=== PATIENT | female | born 1950 ===

== ENCOUNTER 2018-06-30 22:14 | Inpatient (IN) | payer MEDICARE, OTHER ==
[2018-06-30 22:59] LABS: BASO # 0.1 K/uL (0.0-0.2); BASO % 0.3 % (0.0-2.0); EOS % 0.1 % (0.0-4.0); HEMOGLOBIN 14.5 g/dL (11.0-16.0); LYMPH # 4.6 K/uL (1.0-4.3); MEAN CORPUSCULAR HEMOGLOBIN 29.7 pg (27.0-31.0); MEAN CORPUSCULAR HGB CONC 33.7 g/dL (33.0-37.0); MEAN PLATELET VOLUME 8.7 fL (7.2-11.7); MONO # 0.9 K/uL (0.0-0.8); MONO % 5.1 % (0.0-10.0); NEUT # 12.8 K/uL (1.8-7.0); NEUT % 69.5 % (50.0-75.0); RBC 4.9 Mil/uL (3.80-5.20); WHITE BLOOD COUNT 18.4 K/uL (4.8-10.8)
[2018-06-30 23:11] LABS: ALB/GLOB RATIO 1.4 (1.0-2.1); ALBUMIN 4.3 g/dL (3.5-5.0); ALT/SGPT 31 U/L (9-52); AST/SGOT 22 U/L (14-36); BLOOD UREA NITROGEN 26 mg/dL (7-17); CALCIUM 9.7 mg/dl (8.6-10.4); GFR NON-AFRICAN AMERICAN > 60
[2018-06-30] MEDS ORDERED: Oxycodone/Acetaminophen 5/325 mg Tab PO STA (23:14)
[2018-06-30 23:27] LABS: INR 1.1; PROTHROMBIN TIME 11.5 SECONDS (9.7-12.2)
[2018-06-30] MEDS ORDERED: Iodixanol 320 MG/ML 100 ML BOTTLE IV ONE (23:38)
[2018-06-30] MEDS ORDERED: Oxycodone/Acetaminophen 5/325 mg Tab ONE (23:59)
--- NOTE | 2018-07-01 01:07 | C.PDOC ---
History Of Present Illness 67 year old female, with PSHx of splenectomy and cholecystectomy, presents to ED with complaints of LUQ epigastric pain, associated with nausea and vomiting. Patient takes eliquis for portal vein thrombosis annually. Denies any diarrhea or constipation. Time Seen by Provider: 06/30/18 23:08 Chief Complaint (Nursing): Abdominal Pain History Per: Patient History/Exam Limitations: no limitations Onset/Duration Of Symptoms: Days Current Symptoms Are (Timing): Still Present Past Medical History Reviewed: Historical Data, Nursing Documentation, Vital Signs Vital Signs: Last Vital Signs Temp 98 F 06/30/18 22:29 Pulse 67 06/30/18 22:29 Resp 22 06/30/18 22:29 BP 146/101 H 06/30/18 22:29 Pulse Ox 99 06/30/18 22:29 - Medical History PMH: HTN Family History: States: No Known Family Hx - Social History Hx Alcohol Use: Yes Hx Substance Use: No Review Of Systems Except As Marked, All Systems Reviewed And Found Negative. Cardiovascular: Negative for: Chest Pain Respiratory: Negative for: Shortness of Breath Gastrointestinal: Positive for: Nausea, Vomiting, Abdominal Pain (LUQ epigastric). Negative for: Diarrhea Neurological: Negative for: Weakness, Numbness Physical Exam - Physical Exam Appears: Non-toxic, Other (Moderate distress) Skin: Warm, Dry Head: Atraumatic, Normacephalic Eye(s): bilateral: Normal Inspection Oral Mucosa: Moist Chest: Symmetrical Cardiovascular: Rhythm Regular, No Murmur Respiratory: Normal Breath Sounds, No Rales, No Rhonchi, No Wheezing Gastrointestinal/Abdominal: Bowel Sounds (Diminished), Tenderness (in epigastrium) Neurological/Psych: Oriented x3, Normal Speech ED Course And Treatment - Laboratory Results Result Diagrams: 06/30/18 22:57 06/30/18 22:57 Lab Interpretation: Abnormal (LFT, trop neg.) ECG: Interpreted By Me ECG Rhythm: Sinus Rhythm ECG Interpretation: Normal Rate From EC O2 Sat by Pulse Oximetry: 99 (RA) Pulse Ox Interpretation: Normal - Radiology CXR: Interpreted by Me CXR Interpretation: Yes: No Acute Disease - Other Rad abd x 2 X-Ray: Interpreted by Me (+FOS) - CT Scan/US CT Abd/Pel Other Rad Studies (CT/US): Read By Radiologist, Radiology Report Reviewed CT/US Interpretation: IMPRESSION: Changes from prior thrombosis of the left branch of the portal vein. It appears that small in caliber but recanalize with normal flow the current exam. 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 Uncomplicated colonic diverticulosis. Absent/atrophic spleen. Prior hysterectomy. No evidence of acute abdominal or pelvic pathology. Reevaluation Time: 01:09 Reassessment Condition: Improved (belly benign) - Physician Consult Information Outcome Of Conversation: 0100: d/w Dr. Cantrell- Medicine Stations Superintendent- ok to admit. Medical Decision Making Medical Decision Making: Impression: Abdominal pain Plan: --CT Abd/Pel --EKG --Labs --Obstructive X-Ray --IV Fluids --Pepcid --Zofran --Toradol --Percocet --Urinalysis h/o splenectomy and portla vein thrombosis on eliquis BID PO normal flow today Acute colicky pain +FOS recommend overnight laxative Leukocytosis no acute infection prob related to vomiting recheck for trend in AM Disposition Doctor Will See Patient In The: Hospital Counseled Patient/Family Regarding: Studies Performed, Diagnosis - Disposition Disposition: HOSPITALIZED Disposition Time: 01:11 Condition: GOOD - Clinical Impression Clinical Impression: Acute abdominal pain - Scribe Statement The provider has reviewed the documentation as recorded by the Jaun Weiss Provider Attestation: All medical record entries made by the Juan were at my direction and personally dictated by me. I have reviewed the chart and agree that the record accurately reflects my personal performance of the history, physical exam, medical decision making, and the department course for this patient. I have also personally directed, reviewed, and agree with the discharge instructions and disposition.
[2018-07-01 01:21] LABS: SQUAMOUS EPITHIAL < 1 /hpf (0-5); URINE BILIRUBIN NEGATIVE (NEGATIVE); URINE BLOOD NEGATIVE (NEGATIVE); URINE CLARITY Clear (Clear); URINE COLOR Yellow (YELLOW); URINE GLUCOSE (UA) NORMAL (Normal); URINE LEUKOCYTE ESTERASE 1+ Leu/uL (Negative); URINE PROTEIN NEGATIVE (NEGATIVE); URINE UROBILINOGEN NORMAL mg/dL (0.2-1.0)
[2018-07-01] MEDS: Dextrose 5%/0.45% NS 1,000 ML IV SCH ×2 (02:01→17:36)
[2018-07-01] MEDS ORDERED: Albuterol HFA 90 mcg/actuation (8 g) IH PRN ×3 (02:20→13:45)
[2018-07-01 08:54] LABS: BASO % 0.3 % (0.0-2.0); EOS # 0.1 K/uL (0.0-0.7); HEMOGLOBIN 13.2 g/dL (11.0-16.0); LYMPH % 21.1 % (20.0-40.0); MEAN CELL VOLUME 88.9 fL (81.0-99.0); MEAN CORPUSCULAR HEMOGLOBIN 29.9 pg (27.0-31.0); MEAN CORPUSCULAR HGB CONC 33.6 g/dL (33.0-37.0); MONO # 1.2 K/uL (0.0-0.8); MONO % 8.6 % (0.0-10.0); NEUT # 9.7 K/uL (1.8-7.0); RBC 4.42 Mil/uL (3.80-5.20); RED CELL DISTRIBUTION WIDTH 14.4 % (11.5-14.5); WHITE BLOOD COUNT 14.1 K/uL (4.8-10.8)
[2018-07-01 09:08] LABS: ALB/GLOB RATIO 1.3 (1.0-2.1); ALBUMIN 3.5 g/dL (3.5-5.0); ALT/SGPT 41 U/L (9-52); AST/SGOT 39 U/L (14-36); BLOOD UREA NITROGEN 31 mg/dL (7-17); GFR NON-AFRICAN AMERICAN > 60; HDL CHOLESTEROL 69 mg/dL (30-70)
[2018-07-01 09:34] LABS: LDL CHOLESTEROL 77 mg/dL (0-129)
[2018-07-01] MEDS ORDERED: Home Med 1 UNIT (Omeprazole [Omeprazole] 40 MG) PO SCH (10:00)
[2018-07-01] MEDS ORDERED: Home Med 1 UNIT (Linaclotide [Linzess] 290 MCG) PO SCH (10:00)
--- NOTE | 2018-07-01 10:09 | RAD ---
Date of service: 06/30/2018 PROCEDURE: Radiographs of the chest and abdomen (obstructive series) HISTORY: abd pain COMPARISON: No prior. TECHNIQUE: AP radiograph of the chest, with upright and supine radiographs of the abdomen. FINDINGS: CHEST: Lungs: Clear. Cardiovascular: Normal size heart. No pulmonary vascular congestion. Pleura: No pleural fluid. No pneumothorax. Other findings: None. ABDOMEN AND PELVIS: Bowel: Unremarkable bowel gas pattern. No evidence of mechanical obstruction.. There appears to be moderate amount of stool seen throughout the ascending and transverse colon suggesting mild fecal retention/constipation. Free air: None. Bones: Unremarkable. Other findings: None. IMPRESSION: Unremarkable radiographs of chest and abdomen. No evidence of mechanical bowel obstruction however the findings suggest mild fecal retention/constipation..
--- NOTE | 2018-07-01 11:42 | CT ---
Date of service: 07/01/2018 PROCEDURE: CT Abdomen and Pelvis with Oral contrast. HISTORY: Abdominal pain, with history of portal vein thrombosis. COMPARISON: No prior study available for comparison TECHNIQUE: Contiguous axial images of the abdomen and pelvis performed following intravenous injection of approximately 100 cc Visipaque 320 contrast material. The coronal and Sagittal reformats generated. Radiation dose: Total exam DLP = 498.23 mGy-cm. This CT exam was performed using one or more of the following dose reduction techniques: Automated exposure control, adjustment of the mA and/or kV according to patient size, and/or use of iterative reconstruction technique. FINDINGS: LOWER THORAX: There is mild passive / dependent type atelectasis both posterior lower lung zones. There are also areas of linear atelectasis/scarring in the both lung bases left greater than right including the lingular region. No effusion or basilar pneumothorax. Heart size within range of normal. No significant pericardial effusion. Small hiatal hernia. Including the lingular LIVER: The liver exhibits normal size measuring nearly 16 cm in CC dimension. Moderate fatty hepatic infiltration. No obvious hepatic mass collection or calcification.. Suspect cavernous transformation related to prior on thrombosis of the portal vein, presumably the left portal vein which is currently patent (likely recannulated) though small in caliber than the right GALLBLADDER AND BILE DUCTS: Gallbladder is not visible and presumably has been resected however clinical correlation recommended. PANCREAS: Pancreas appears slightly atrophic and fatty replaced. No obvious pancreatic masses collections or calcifications. SPLEEN: Spleen is not visible and may be atrophic or may have been surgically resected however clinical correlation recommended. ADRENALS: No adrenal lesions.. KIDNEYS AND URETERS: Kidneys demonstrate symmetric nephrograms. No evidence of nephrolithiasis or hydronephrosis. BLADDER: Grossly unremarkable. REPRODUCTIVE: Hysterectomy APPENDIX: Appendix is not seen with complete certainty however no obvious inflammatory changes right lower quadrant of the abdomen. BOWEL: Evaluation of the bowel is limited due to the lack of oral contrast material. Stomach is incompletely distended. Visualized loops of small bowel exhibit normal contour and caliber. No evidence of acute mechanical small bowel obstruction. Moderate amount of stool seen within the cecum ascending and proximal transverse colon suggesting mild fecal retention/constipation. PERITONEUM: Unremarkable. No fluid collection. No free air. Small fat containing umbilical hernia. Small fat containing right inguinal hernia. LYMPH NODES: Multiple small nonspecific mesenteric lymph nodes are present. There are also a few tiny nonspecific retroperitoneal lymph nodes. VASCULATURE: Unremarkable. No aortic aneurysm. BONES: Mild multilevel degenerative spondylosis of the lower thoracic and to a lesser degree lumbar spine. OTHER FINDINGS: None. IMPRESSION: Fatty hepatic infiltration. Suspect cavernous transformation related to prior on thrombosis of the portal vein, presumably the left portal vein which is currently patent (likely recannulated) though small in caliber than the right. Gallbladder not visualized and presumably has been resected however clinical correlation surgical history. The spleen is not present and there are no obvious surgical clips or suture material seen in the left upper quadrant of the abdomen. Rule out splenic atrophy versus post surgical sequela. Hysterectomy.
--- NOTE | 2018-07-01 11:48 | CP.PCM.PN ---
Subjective - Date & Time of Evaluation Date of Evaluation: 07/01/18 Time of Evaluation: 11:48 - Subjective Subjective: H&P dictated #[id number] Objective - Vital Signs/Intake and Output Vital Signs (last 24 hours): Temp Pulse Resp BP Pulse Ox 98.6 F 53 L 20 116/66 99 07/01/18 08:14 07/01/18 08:14 07/01/18 08:14 07/01/18 08:14 07/01/18 08:14 - Medications Medications: Current Medications Al Hydrox/Mg Hydrox/Simethicone (Maalox 30 Ml) 30 ml PO ONCE ONE Stop: 07/01/18 12:01 Last Admin: 07/01/18 11:41 Dose: 30 ml Albuterol (Ventolin Hfa 90 Mcg/Actuation (8 G)) 1 puff IH PRN PRN PRN Reason: Shortness of Breath Apixaban (Eliquis) 5 mg PO BID [facility] [place] Last Admin: 07/01/18 10:07 Dose: 5 mg Home Med (Linaclotide [Linzess]) 290 mcg PO DAILY [facility] [place] Last Admin: 07/01/18 10:08 Dose: Not Given Home Med (Omeprazole [Omeprazole]) 40 mg PO DAILY [facility] [place] Last Admin: 07/01/18 10:08 Dose: Not Given Hydrochlorothiazide (Microzide) 25 mg PO DAILY [facility] [place] Last Admin: 07/01/18 10:07 Dose: 25 mg Dextrose/Sodium Chloride (Dextrose 5%/0.45% Ns 1000 Ml) 1,000 mls @ 75 mls/hr IV .[id number] [facility] [place] Last Admin: 07/01/18 02:01 Dose: 75 mls/hr Levothyroxine Sodium (Levothroid) 137 mcg PO DAILY [facility] [place] Last Admin: 07/01/18 10:07 Dose: 137 mcg Ondansetron HCl (Zofran Inj) 4 mg IVP Q8 PRN PRN Reason: Nausea/Vomiting Pantoprazole Sodium (Protonix Inj) 40 mg IVP ONCE ONE Stop: 07/01/18 12:01 Last Admin: 07/01/18 11:41 Dose: 40 mg - Labs Labs: 07/01/18 08:43 07/01/18 08:43 PT 11.5 SECONDS (9.7-12.2) 06/30/18 23:19 INR 1.1 06/30/18 23:19
[2018-07-01] MEDS ORDERED: Aluminum Hydroxide/Magnesium Hydroxide Susp (30 mL) PO ONE (12:00)
[2018-07-01] MEDS ORDERED: Alum-Mag Hydrox-Simethicone Susp (30 mL) PO PRN (13:09)
[2018-07-01] MEDS ORDERED: Potassium Chloride 20 mEq ER Tab PO ONE (13:15)
--- NOTE | 2018-07-01 16:08 | CP.PCM.CON ---
<DimaBong - Last Filed: 07/01/18 15:51> History of Present Illness - History of Present Illness History of Present Illness: GI Fellow PGY4, consult note. Jessica Mccoy is a very pleasant 67F [place] speaking only with hx of PVT on Eliquis, chronic constipation on Linzess and multiple abdominal procedures presenting with acute epigastric pain, N/V. She felt well yesterday until she was at a friends house at a social gathering. 30 minutes into arriving, she developed progressive burning epigastric pain that was 10/10 at max. She denies eating or drinking directly before this painful episode. There was report of emesis but not bloody emesis or blood in stool reported. She was unable to tolerate the pain and ambulance was called. She was given medications through the IV which helped. Now, she is in 4/10 pain. She admits she has had progressive dysphagia as well, solids more than liquids. Recently she felt like she was choking on food. Patient has had abdominal pains in the past. In fact, she had EGD and colonoscopy one year ago at different facility. There were no reported problems except for polyps in the colon per patient's memory. She see Dr. Arriaga as an outpatient GI. She takes Omeprazole intermittently. She had been taking prednisone x3 days for a cough prior to presentation. She denies taking much Ibuprofen or other NSAIDs. No history of GI bleed in the past. She admits her father from gastric cancer. She denies smoking or alcohol use. She had PVT 8 years ago and it resolved on Coumadin. Unfortunately, it returned and now she is on Eliquis indefinitely. CT abd/pelv reviewed. No signs of obstruction. Moderate amount of stool in right colon. Hb normal and stable. PMHx - see above PSHx - cholecystectomy, splenectomy, hysterectomy, EGD/CSPY in 2017 FMHx - Father gastric cancer SocHx - denies drinking EtOH, denies smoking. . 12pt ROS negative except for above. Past Patient History - Past Social History Smoking Status: Never Smoked - CARDIAC Hx Hypertension: Yes - ENDOCRINE/METABOLIC Other/Comment: thyroid disease - PSYCHIATRIC Hx Substance Use: No Meds Allergies/Adverse Reactions: Allergies Allergy/AdvReac Type Severity Reaction Status Date / Time morphine Allergy Verified 06/30/18 22:34 - Medications Medications: Current Medications Al Hydrox/Mg Hydrox/Simethicone (Maalox Plus 30 Ml) 30 ml PO Q8H PRN PRN Reason: Indigestion / Heartburn Albuterol (Ventolin Hfa 90 Mcg/Actuation (8 G)) 1 puff IH RQ24 PRN PRN Reason: Shortness of Breath Apixaban (Eliquis) 5 mg PO BID [facility] Last Admin: 07/01/18 10:07 Dose: 5 mg Home Med (Linaclotide [Linzess]) 290 mcg PO DAILY [facility] Hydrochlorothiazide (Hydrodiuril) 25 mg PO DAILY [facility] Dextrose/Sodium Chloride (Dextrose 5%/0.45% Ns 1000 Ml) 1,000 mls @ 75 mls/hr IV .[id number] [facility] Last Admin: 07/01/18 02:01 Dose: 75 mls/hr Levothyroxine Sodium (Levothroid) 137 mcg PO DAILY@0630 [facility] Ondansetron HCl (Zofran Inj) 4 mg IVP Q8 PRN PRN Reason: Nausea/Vomiting Pantoprazole Sodium (Protonix Inj) 40 mg IVP DAILY [facility] Rosuvastatin Calcium (Crestor) 2.5 mg PO HS [facility] Physical Exam - Constitutional Appears: Well, Non-toxic, No Acute Distress - Head Exam Head Exam: NORMAL INSPECTION, NORMOCEPHALIC - Eye Exam Eye Exam: EOMI, Normal appearance - ENT Exam ENT Exam: Mucous Membranes Moist, Normal Exam - Respiratory Exam Respiratory Exam: Clear to Auscultation Bilateral, NORMAL BREATHING PATTERN - Cardiovascular Exam Cardiovascular Exam: Bradycardia, REGULAR RHYTHM, +S1, +S2 - GI/Abdominal Exam GI & Abdominal Exam: Normal Bowel Sounds, Soft, Tenderness Additional comments: Moderate tenderness in epigastric area - Extremities Exam Extremities exam: Positive for: normal inspection Additional comments: Left arm swelling (IV infiltration) - Neurological Exam Neurological exam: Alert, CN II-XII Intact, Oriented x3 - Psychiatric Exam Psychiatric exam: Normal Affect, Normal Mood - Skin Skin Exam: Dry, Intact Results - Vital Signs Recent Vital Signs: Last Vital Signs Temp 98.6 F 07/01/18 08:14 Pulse 53 L 07/01/18 08:14 Resp 20 07/01/18 08:14 BP 116/66 07/01/18 08:14 Pulse Ox 99 07/01/18 08:14 - Labs Result Diagrams: 07/01/18 08:43 07/01/18 08:43 Labs: Laboratory Results - last 24 hr 06/30/18 06/30/18 06/30/18 22:57 22:57 23:13 WBC 18.4 H RBC 4.90 Hgb 14.5 Hct 43.1 MCV 88.0 MCH 29.7 MCHC 33.7 RDW 14.0 Plt Count 364 MPV 8.7 Neut % (Auto) 69.5 Lymph % (Auto) 25.0 Whitley % (Auto) 5.1 Eos % (Auto) 0.1 Baso % (Auto) 0.3 Neut # (Auto) 12.8 H Lymph # (Auto) 4.6 H Whitley # (Auto) 0.9 H Eos # (Auto) 0.0 Baso # (Auto) 0.1 PT INR Sodium 141 Potassium 3.4 L Chloride 105 Carbon Dioxide 23 Anion Gap 16 BUN 26 H Creatinine 0.7 Est GFR ( Amer) > 60 Est GFR (Non-Af Amer) > 60 Random Glucose 155 H Calcium 9.7 Total Bilirubin 0.3 AST 22 ALT 31 Alkaline Phosphatase 105 Troponin I Total Protein 7.3 Albumin 4.3 Globulin 3.0 Albumin/Globulin Ratio 1.4 Triglycerides Cholesterol LDL Cholesterol Direct HDL Cholesterol Lipase TSH 3rd Generation Urine Color Yellow Urine Clarity Clear Urine pH 6.0 Ur Specific Pansey 1.045 H Urine Protein Negative Urine Glucose (UA) Normal Urine Ketones Negative Urine Blood Negative Urine Nitrate Negative Urine Bilirubin Negative Urine Urobilinogen Normal Ur Leukocyte Esterase 1+ H Urine WBC (Auto) 2 Urine RBC (Auto) 2 Ur Squamous Epith Cells < 1 06/30/18 06/30/18 07/01/18 23:19 23:20 00:19 WBC RBC Hgb Hct MCV MCH MCHC RDW Plt Count MPV Neut % (Auto) Lymph % (Auto) Whitley % (Auto) Eos % (Auto) Baso % (Auto) Neut # (Auto) Lymph # (Auto) Whitley # (Auto) Eos # (Auto) Baso # (Auto) PT 11.5 INR 1.1 Sodium Potassium Chloride Carbon Dioxide Anion Gap BUN Creatinine Est GFR ( Amer) Est GFR (Non-Af Amer) Random Glucose Calcium Total Bilirubin AST ALT Alkaline Phosphatase Troponin I < 0.0120 Total Protein Albumin Globulin Albumin/Globulin Ratio Triglycerides Cholesterol LDL Cholesterol Direct HDL Cholesterol Lipase 132 TSH 3rd Generation Urine Color Urine Clarity Urine pH Ur Specific Pansey Urine Protein Urine Glucose (UA) Urine Ketones Urine Blood Urine Nitrate Urine Bilirubin Urine Urobilinogen Ur Leukocyte Esterase Urine WBC (Auto) Urine RBC (Auto) Ur Squamous Epith Cells 07/01/18 07/01/18 07/01/18 08:43 08:43 13:41 WBC 14.1 H RBC 4.42 Hgb 13.2 Hct 39.3 MCV 88.9 MCH 29.9 MCHC 33.6 RDW 14.4 Plt Count 304 MPV 9.0 Neut % (Auto) 69.0 Lymph % (Auto) 21.1 Whitley % (Auto) 8.6 Eos % (Auto) 1.0 Baso % (Auto) 0.3 Neut # (Auto) 9.7 H Lymph # (Auto) 3.0 Whitley # (Auto) 1.2 H Eos # (Auto) 0.1 Baso # (Auto) 0.0 PT INR Sodium 141 Potassium 3.5 L Chloride 103 Carbon Dioxide 28 Anion Gap 13 BUN 31 H Creatinine 0.8 Est GFR ( Amer) > 60 Est GFR (Non-Af Amer) > 60 Random Glucose 105 Calcium 9.0 Total Bilirubin 0.7 AST 39 H D ALT 41 Alkaline Phosphatase 72 Troponin I < 0.0120 Total Protein 6.2 L Albumin 3.5 Globulin 2.7 Albumin/Globulin Ratio 1.3 Triglycerides 63 Cholesterol 169 LDL Cholesterol Direct 77 HDL Cholesterol 69 Lipase TSH 3rd Generation 0.55 Urine Color Urine Clarity Urine pH Ur Specific Pansey Urine Protein Urine Glucose (UA) Urine Ketones Urine Blood Urine Nitrate Urine Bilirubin Urine Urobilinogen Ur Leukocyte Esterase Urine WBC (Auto) Urine RBC (Auto) Ur Squamous Epith Cells Assessment & Plan - Assessment and Plan (Free Text) Assessment: 67F presenting with epigastric pain #Acute abdominal pain - possible PUD vs constipation #Dyspepsia #Dysphagia #Fm hx of Gastric CA #Chronic constipation on Linzess #Hx of PVT on Eliquis #Hypothyroidism #s/p yancy, splenectomy, hysterectomy PLAN: -CT reviewed: No obstruction. Portal veins are patent. Moderate stool in colon. -Continue PPI. Stop toradol. -Bowel regimen -Recommend EGD for acute epigastric pain, dysphagia and family history. -She is on Eliquis, last dose today. We could possible do diagnostic study tomorrow or wait until Monday/. This could be done as outpatient if patient feels much improved. I will place Eliquis on hold for now and discuss with AM team. -Consent in chart. -NPO PM. - Date & Time Date: 07/01/18 Time: 16:09 <Homero Price - Last Filed: 07/01/18 21:35> Meds - Medications Medications: Current Medications Al Hydrox/Mg Hydrox/Simethicone (Maalox Plus 30 Ml) 30 ml PO Q8H PRN PRN Reason: Indigestion / Heartburn Albuterol (Ventolin Hfa 90 Mcg/Actuation (8 G)) 1 puff IH RQ24 PRN PRN Reason: Shortness of Breath Apixaban (Eliquis) 5 mg PO BID [facility] Last Admin: 07/01/18 10:07 Dose: 5 mg Docusate Sodium (Colace) 100 mg PO BID [facility] Last Admin: 07/01/18 17:34 Dose: 100 mg Famotidine (Pepcid) 20 mg IVP DAILY [facility] Home Med (Linaclotide [Linzess]) 290 mcg PO DAILY [facility] Hydrochlorothiazide (Hydrodiuril) 25 mg PO DAILY [facility] Dextrose/Sodium Chloride (Dextrose 5%/0.45% Ns 1000 Ml) 1,000 mls @ 75 mls/hr IV .[id number] [facility] Last Admin: 07/01/18 17:36 Dose: 75 mls/hr Levothyroxine Sodium (Levothroid) 137 mcg PO DAILY@0630 [facility] Ondansetron HCl (Zofran Inj) 4 mg IVP Q8 PRN PRN Reason: Nausea/Vomiting Pantoprazole Sodium (Protonix Inj) 40 mg IVP DAILY [facility] Polyethylene Glycol (Miralax) 17 gm PO BID [facility] Last Admin: 07/01/18 17:32 Dose: 17 gm Rosuvastatin Calcium (Crestor) 2.5 mg PO HS [facility] Last Admin: 07/01/18 21:28 Dose: 2.5 mg Results - Vital Signs Recent Vital Signs: Last Vital Signs Temp 97.6 F 07/01/18 15:00 Pulse 50 L 07/01/18 15:00 Resp 20 07/01/18 15:00 BP 153/88 H 07/01/18 15:00 Pulse Ox 98 07/01/18 15:00 - Labs Result Diagrams: 07/01/18 08:43 07/01/18 08:43 Labs: Laboratory Results - last 24 hr 06/30/18 06/30/18 06/30/18 22:57 22:57 23:13 WBC 18.4 H RBC 4.90 Hgb 14.5 Hct 43.1 MCV 88.0 MCH 29.7 MCHC 33.7 RDW 14.0 Plt Count 364 MPV 8.7 Neut % (Auto) 69.5 Lymph % (Auto) 25.0 Whitley % (Auto) 5.1 Eos % (Auto) 0.1 Baso % (Auto) 0.3 Neut # (Auto) 12.8 H Lymph # (Auto) 4.6 H Whitley # (Auto) 0.9 H Eos # (Auto) 0.0 Baso # (Auto) 0.1 PT INR Sodium 141 Potassium 3.4 L Chloride 105 Carbon Dioxide 23 Anion Gap 16 BUN 26 H Creatinine 0.7 Est GFR ( Amer) > 60 Est GFR (Non-Af Amer) > 60 Random Glucose 155 H Calcium 9.7 Total Bilirubin 0.3 AST 22 ALT 31 Alkaline Phosphatase 105 Troponin I Total Protein 7.3 Albumin 4.3 Globulin 3.0 Albumin/Globulin Ratio 1.4 Triglycerides Cholesterol LDL Cholesterol Direct HDL Cholesterol Lipase TSH 3rd Generation Urine Color Yellow Urine Clarity Clear Urine pH 6.0 Ur Specific Pansey 1.045 H Urine Protein Negative Urine Glucose (UA) Normal Urine Ketones Negative Urine Blood Negative Urine Nitrate Negative Urine Bilirubin Negative Urine Urobilinogen Normal Ur Leukocyte Esterase 1+ H Urine WBC (Auto) 2 Urine RBC (Auto) 2 Ur Squamous Epith Cells < 1 06/30/18 06/30/18 07/01/18 23:19 23:20 00:19 WBC RBC Hgb Hct MCV MCH MCHC RDW Plt Count MPV Neut % (Auto) Lymph % (Auto) Whitley % (Auto) Eos % (Auto) Baso % (Auto) Neut # (Auto) Lymph # (Auto) Whitley # (Auto) Eos # (Auto) Baso # (Auto) PT 11.5 INR 1.1 Sodium Potassium Chloride Carbon Dioxide Anion Gap BUN Creatinine Est GFR ( Amer) Est GFR (Non-Af Amer) Random Glucose Calcium Total Bilirubin AST ALT Alkaline Phosphatase Troponin I < 0.0120 Total Protein Albumin Globulin Albumin/Globulin Ratio Triglycerides Cholesterol LDL Cholesterol Direct HDL Cholesterol Lipase 132 TSH 3rd Generation Urine Color Urine Clarity Urine pH Ur Specific Pansey Urine Protein Urine Glucose (UA) Urine Ketones Urine Blood Urine Nitrate Urine Bilirubin Urine Urobilinogen Ur Leukocyte Esterase Urine WBC (Auto) Urine RBC (Auto) Ur Squamous Epith Cells 07/01/18 07/01/18 07/01/18 08:43 08:43 13:41 WBC 14.1 H RBC 4.42 Hgb 13.2 Hct 39.3 MCV 88.9 MCH 29.9 MCHC 33.6 RDW 14.4 Plt Count 304 MPV 9.0 Neut % (Auto) 69.0 Lymph % (Auto) 21.1 Whitley % (Auto) 8.6 Eos % (Auto) 1.0 Baso % (Auto) 0.3 Neut # (Auto) 9.7 H Lymph # (Auto) 3.0 Whitley # (Auto) 1.2 H Eos # (Auto) 0.1 Baso # (Auto) 0.0 PT INR Sodium 141 Potassium 3.5 L Chloride 103 Carbon Dioxide 28 Anion Gap 13 BUN 31 H Creatinine 0.8 Est GFR ( Amer) > 60 Est GFR (Non-Af Amer) > 60 Random Glucose 105 Calcium 9.0 Total Bilirubin 0.7 AST 39 H D ALT 41 Alkaline Phosphatase 72 Troponin I < 0.0120 Total Protein 6.2 L Albumin 3.5 Globulin 2.7 Albumin/Globulin Ratio 1.3 Triglycerides 63 Cholesterol 169 LDL Cholesterol Direct 77 HDL Cholesterol 69 Lipase TSH 3rd Generation 0.55 Urine Color Urine Clarity Urine pH Ur Specific Pansey Urine Protein Urine Glucose (UA) Urine Ketones Urine Blood Urine Nitrate Urine Bilirubin Urine Urobilinogen Ur Leukocyte Esterase Urine WBC (Auto) Urine RBC (Auto) Ur Squamous Epith Cells Attending/Attestation - Attestation I have personally seen and examined this patient.: Yes I have fully participated in the care of the patient.: Yes I have reviewed all pertinent clinical information: Yes Notes (Text): 07/01/18 21:31 This is a 67 yr old F presenting with epigastric pain which is resolving now on steroids for COPD with intermittent dysphagia for solids and liquids likely due to motility defect or esophagitis. Also has chronic contipation on linzess with no BM in past [address] with moderate stool. Continue PPi. Discontinue NSAID's. Bowel regimen. Has outpatient gasteroenterologist with whom she had EGD/ colonoscopy last year. To follow with GI as outpatient. Advance diet as tolerated. On eliquis. Will need to hold it for 3 days prior to endoscopic evaluation. Will sign off now.
[2018-07-01] MEDS: POLYETHYLENE GLYCOL 3350 17 GM/Dose PACKET PO SCH (17:32)
[2018-07-01] MEDS: Rosuvastatin Calcium 2.5 mg Tab PO SCH (21:28)
--- NOTE | 2018-07-02 00:41 | HP ---
CHIEF COMPLAINT: Sudden onset of epigastric burning pain associated with shortness of breath and dizziness, which started last night around 9 p.m. HISTORY OF PRESENT ILLNESS: Ms. Neisha Mccoy is a 67-year-old female with a past medical history of hypertension, hypothyroidism, hyperlipidemia, obstructive sleep apnea, on CPAP, seasonal allergies, history of portal vein thrombosis diagnosed many years ago, was on anticoagulation which was discontinued at [facility], but later she was found to be developing portal vein thrombosis again, and the patient was started back on Eliquis a few years ago at [facility]. She has been following up with Dr. Ohara from [employer]. She came into the ED for sudden onset of epigastric pain. The history was obtained from the patient and the patient's who is at bedside. As per them, she has been having seasonal allergies to pollen and dust. She was evaluated by Primary. She has been having persistent cough. The patient was given Singulair and prednisone 10 mg daily for one month, which the patient took for three days. Yesterday, they were at a green party around 9 p.m., and they were about to have dinner. The patient suddenly started experiencing epigastric pain, which was burning in nature as per her, 10/10, radiating to the left upper quadrant. Denies any nausea or vomiting, but complains of mild shortness of breath and felt dizzy and had headache. She could not eat anything, so the patient was brought into the emergency room. In the ED, the patient was given treatment and admitted for further evaluation. This morning, the patient's pain is slightly better than yesterday. It is 3/10, in the epigastric region, nonradiating. Denies any headache or dizziness. Denies any chest pain or shortness of breath. Complaining of constipation for which she takes Linzess. Her last bowel movement was yesterday. She denies any leg pains or leg cramps. Denies any urinary complaints. Denies any other neurologic symptoms. PAST MEDICAL HISTORY: As described, portal vein thrombosis, hypothyroidism, hyperlipidemia, obstructive sleep apnea, hypertension, chronic constipation. Uses CPAP for obstructive sleep apnea. 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 FAMILY HISTORY: Coronary artery disease in mother who at age 80. Father had history of stomach cancer, at 75. PERSONAL HISTORY: She is . Having five children. Retired. Living with her . SOCIAL HISTORY: Denies smoking, alcohol, or drug abuse. ALLERGIES: SHE IS ALLERGIC TO MORPHINE. MEDICATIONS: Her home medications include simvastatin 10 mg daily, Ventolin as needed, , Linzess 290 mcg daily, omeprazole 40 mg daily, Eliquis 5 mg p.o. b.i.d., Synthroid 137 mcg p.o. daily, hydrochlorothiazide 25 mg p.o. daily, vitamin D 5000 units daily. REVIEW OF SYSTEMS: As described in history of present illness. All other systems reviewed and were found to be negative. PHYSICAL EXAMINATION: GENERAL: Elderly female, lying in bed, in no acute distress. VITAL SIGNS: Blood pressure 116/66, pulse 53, respirations 20, temperature 98.6 degrees Fahrenheit, O2 sat is 99% on 2 L nasal cannula. HEENT: Pupils are equal, round and reacting to light and accommodation. Extraocular muscles intact. No icterus. No pallor. No oral thrush. No pharyngeal congestion. NECK: Supple. No JVD. LUNGS: Bilateral vesicular breath sounds. No wheezing. No rhonchi. CARDIOVASCULAR SYSTEM: S1 and S2 present, irregular. ABDOMEN: Soft. Bowel sounds are present. Minimal epigastric tenderness noted. No guarding. No rigidity. No rebound tenderness noted. CENTRAL NERVOUS SYSTEM: Alert, awake, oriented x3. No focal deficits noted. EXTREMITIES: No edema. Palpable peripheral pulses. LABORATORY DATA: Labs done from the ED: WBC 18.4, hemoglobin 14.5, hematocrit 43.1 and platelets 364. PT 11.5, INR 1.1. Sodium 141, potassium 3.4, chloride 105, bicarbonate 23, BUN 26, creatinine 0.7, glucose 155, calcium 9.7. Total bilirubin 0.3, AST 22, ALT 31, alkaline phosphatase 105. Cardiac enzymes x1 negative. Total protein 7.3, albumin 4.3. Cholesterol 169, triglycerides 63, LDL 77, HDL 69. Lipase 132. TSH 0.55. UA: Specific gravity 1.045, pH 6, leukocyte esterase 1+, otherwise negative. EKG consistent with normal sinus bradycardia at 56 beats per minute. No acute ST-T changes noted. CT of the abdomen and pelvis consistent with fatty hepatic infiltration, gallbladder not visualized, spleen is not present. Hysterectomy. Abdominal obstructive series unremarkable. Radiographs of chest and abdomen, no evidence of mechanical bowel obstruction, findings suggest mild fecal retention, constipation. ASSESSMENT AND PLAN: Elderly female with a history of left portal vein thrombosis, on long-time anticoagulation; hypertension; hypothyroidism; hyperlipidemia; obstructive sleep apnea; seasonal allergies; and chronic constipation who has been following with Dr. Ohara from [employer], her primary care physician, and going to [facility] for portal vein thrombosis followup who was given Singulair and prednisone about three days ago for her allergies. Came into the emergency department with sudden onset of epigastric burning pain, radiating to the left upper quadrant, associated with mild shortness of breath and dizziness without any vomiting. In the emergency department, the patient was found to be having elevated white blood cells count and persistent abdominal pain as the patient has been admitted for further management. 1. Epigastric abdominal pain most likely secondary to acute gastritis from recent steroid use, rule out other causes. 2. Elevated white blood cell count, probably secondary to steroid use. 3. Hypokalemia. 4. History of hypothyroidism. 5. History of hypertension. 6. History of hyperlipidemia. 7. History of portal vein thrombosis, on long-term anticoagulation. 8. History of obstructive sleep apnea and seasonal allergies, on continuous positive airway pressure. PLAN: The patient is being admitted to the hospital. We will give the patient Protonix 40 mg IV daily along with Maalox as needed. Advanced diet. Her repeat WBC count is 14.1 which is improving. We will hold prednisone. Continue with Singulair. Continue with Eliquis. Her blood pressure is stable on hydrochlorothiazide. Continue with Zocor. TSH is within normal limits. Continue with Synthroid 137 mcg p.o. daily. We will give KCl supplementation. Repeat labs in a.m. Give lactulose one dose. We will check serial troponins and echocardiogram. Monitor her heart rates which are running in low 50s. We will obtain GI evaluation. We will add further recommendations as her clinical course progresses. Yulissa Sun MD [facility] # [id number]
[2018-07-02] MEDS: Dextrose 5%/0.45% NS 1,000 ML IV SCH (05:46)
[2018-07-02 08:24] LABS: BASO # 0.1 K/uL (0.0-0.2); BASO % 1.2 % (0.0-2.0); EOS # 0.3 K/uL (0.0-0.7); EOS % 2.4 % (0.0-4.0); HEMOGLOBIN 13.5 g/dL (11.0-16.0); LYMPH # 3.3 K/uL (1.0-4.3); LYMPH % 29.4 % (20.0-40.0); MEAN CORPUSCULAR HEMOGLOBIN 29.8 pg (27.0-31.0); MEAN CORPUSCULAR HGB CONC 33.5 g/dL (33.0-37.0); MONO % 8.8 % (0.0-10.0); NEUT # 6.5 K/uL (1.8-7.0); NEUT % 58.2 % (50.0-75.0); NRBC % 0.1 % (0.0-2.0); RBC 4.52 Mil/uL (3.80-5.20); RED CELL DISTRIBUTION WIDTH 14.2 % (11.5-14.5); WHITE BLOOD COUNT 11.2 K/uL (4.8-10.8)
[2018-07-02 08:44] LABS: ALB/GLOB RATIO 1.2 (1.0-2.1); ALBUMIN 3.3 g/dL (3.5-5.0); ALT/SGPT 38 U/L (9-52); AST/SGOT 27 U/L (14-36); BLOOD UREA NITROGEN 19 mg/dL (7-17); GFR NON-AFRICAN AMERICAN > 60
[2018-07-02 08:52] VITALS: RESP 20
[2018-07-02] MEDS: POLYETHYLENE GLYCOL 3350 17 GM/Dose PACKET PO SCH ×3 (09:58→17:45)
[2018-07-02] MEDS ORDERED: Influenza Vaccine 60 MCG/0.5 ML SYR (3 yr & up) IM ONE (10:00)
[2018-07-02] MEDS ORDERED: Home Med 1 UNIT (Linaclotide [Linzess] 290 MCG) PO SCH (10:00)
--- NOTE | 2018-07-02 10:07 | CP.PCM.PN ---
Subjective - Date & Time of Evaluation Date of Evaluation: 07/02/18 Time of Evaluation: 10:07 - Subjective Subjective: Progress note dictated #[id number] Objective - Vital Signs/Intake and Output Vital Signs (last 24 hours): Temp Pulse Resp BP Pulse Ox 98.3 F 60 20 116/71 99 07/02/18 08:51 07/02/18 08:51 07/02/18 08:51 07/02/18 08:51 07/02/18 08:51 Intake and Output: 07/02/18 07/02/18 06:59 18:59 Intake Total 1000 600 Output Total 500 Balance 500 600 - Medications Medications: Current Medications Al Hydrox/Mg Hydrox/Simethicone (Maalox Plus 30 Ml) 30 ml PO Q8H PRN PRN Reason: Indigestion / Heartburn Albuterol (Ventolin Hfa 90 Mcg/Actuation (8 G)) 1 puff IH RQ24 PRN PRN Reason: Shortness of Breath Apixaban (Eliquis) 5 mg PO BID [facility] Last Admin: 07/01/18 10:07 Dose: 5 mg Docusate Sodium (Colace) 100 mg PO BID [facility] Last Admin: 07/02/18 09:58 Dose: 100 mg Famotidine (Pepcid) 20 mg IVP DAILY [facility] Last Admin: 07/02/18 10:01 Dose: 20 mg Home Med (Linaclotide [Linzess]) 290 mcg PO DAILY [facility] Hydrochlorothiazide (Hydrodiuril) 25 mg PO DAILY [facility] Last Admin: 07/02/18 09:58 Dose: 25 mg Dextrose/Sodium Chloride (Dextrose 5%/0.45% Ns 1000 Ml) 1,000 mls @ 75 mls/hr IV .[id number] [facility] Last Admin: 07/02/18 05:46 Dose: Not Given Levothyroxine Sodium (Levothroid) 137 mcg PO DAILY@0630 [facility] Last Admin: 07/02/18 05:44 Dose: 137 mcg Ondansetron HCl (Zofran Inj) 4 mg IVP Q8 PRN PRN Reason: Nausea/Vomiting Pantoprazole Sodium (Protonix Inj) 40 mg IVP DAILY [facility] Last Admin: 07/02/18 09:58 Dose: 40 mg Polyethylene Glycol (Miralax) 17 gm PO BID [facility] Last Admin: 07/02/18 09:58 Dose: 17 gm Rosuvastatin Calcium (Crestor) 2.5 mg PO HS [facility] Last Admin: 07/01/18 21:28 Dose: 2.5 mg - Labs Labs: 07/02/18 08:14 07/02/18 08:14 PT 11.5 SECONDS (9.7-12.2) 06/30/18 23:19 INR 1.1 06/30/18 23:19
--- NOTE | 2018-07-02 16:59 | CARD ---
APPROVED REPORT Date of service: 07/02/2018 EXAM: Two-dimensional and M-mode echocardiogram with Doppler and color Doppler. Other Information Quality : GoodRhythm : NSR INDICATION i v infecation 2D DIMENSIONS LVOT Diameter1.7 (1.8-2.4cm)LA Ohzgzr90 (18-58mL) M-Mode DIMENSIONS Left Atrium (MM)3.58 (2.5-4.0cm)IVSd0.81 (0.7-1.1cm) Aortic Root2.64 (2.2-3.7cm)LVDd4.20 (4.0-5.6cm) Aortic Cusp Exc.1.46 (1.5-2.0cm)PWd0.78 (0.7-1.1cm) FS (%) 43 %LVDs2.38 (2.0-3.8cm) LVEF (%)75 (>50%) Aortic Valve AoV Peak Bsqtbzkr507.4cm/Edel Peak GR.41mmHgLVOT Peak Byvpnheo620.1cm/s LVOT VTI28.23cmAVA (VMAX)0.75cm2 Mitral Valve MV E Vevipsjx17.1cm/sMV A Wbgftmtx314.4cm/sE/A ratio0.8 TDI Lateral E' Peak V8.61cm/sMedial E' Peak V8.16cm/sE/Lateral E'10.0 E/Medial E'10.6 Tricuspid Valve TR Peak Ndgevidu250pg/sTR Peak Gr.73jzThPLIC29leCh LEFT VENTRICLE The left ventricle is normal size. There is borderline concentric left ventricular hypertrophy. The left ventricular function is normal. The left ventricular ejection fraction is within the normal range. There is normal LV segmental wall motion. Transmitral Doppler flow pattern is Grade I-abnormal relaxation pattern. RIGHT VENTRICLE The right ventricle is normal size. There is normal right ventricular wall thickness. The right ventricular systolic function is normal. ATRIA The left atrium size is normal. The right atrium size is normal. AORTIC VALVE The aortic valve is not well visualized and is probably bicuspid. There is trace aortic regurgitation. There is moderate to severe valvular aortic stenosis. MITRAL VALVE The mitral valve is mildly thickened. There is no evidence of mitral valve prolapse. There is no mitral valve stenosis. There is no mitral valve regurgitation noted. TRICUSPID VALVE The tricuspid valve is normal in structure. There is no tricuspid valve regurgitation noted. PULMONIC VALVE The pulmonary valve is normal in structure. There is trace pulmonic valvular regurgitation. GREAT VESSELS The aortic root is normal in size. The IVC was not visualized. PERICARDIAL EFFUSION There is a trace loculated anterior pericardial effusion. <Conclusion> The left ventricle is normal size. There is borderline concentric left ventricular hypertrophy. The left ventricular function is normal. The left ventricular ejection fraction is within the normal range. There is normal LV segmental wall motion. Transmitral Doppler flow pattern is Grade I-abnormal relaxation pattern. The aortic valve is not well visualized and is probably bicuspid. There is moderate to severe valvular aortic stenosis.
--- NOTE | 2018-07-02 18:44 | CARD ---
APPROVED REPORT Date of service: 07/01/2018 EKG Measurement Heart [id number] HI [id number] [id number] <Conclusion> Sinus bradycardia Otherwise normal ECG
[2018-07-02] MEDS: Rosuvastatin Calcium 2.5 mg Tab PO SCH (21:52)
--- NOTE | 2018-07-03 00:46 | PN ---
DATE: 07/02/2018 SUBJECTIVE: The patient was seen and examined at bedside. She is feeling much better. Epigastric pain is less than yesterday. Denies any chest pain. Denies any shortness of breath. Denies any other new complaints. She claims that she was told by GI doctors that she was going to go for endoscopy this morning and the patient was kept n.p.o. and awaiting for GI to been seen. Denies any other complaints. PHYSICAL EXAMINATION: GENERAL: Elderly female lying in bed, in no acute distress. VITAL SIGNS: Blood pressure 116/71, pulse 60, respirations 20, temperature 98.3 degree Fahrenheit, O2 sat is 99% on room air. HEENT: Pupils equal, round, reacting to light and accommodation. Extraocular muscles intact. No icterus. No pallor. No oral thrush. No pharyngeal congestion. NECK: Supple. No JVD. LUNGS: Bilateral vesicular breath sounds. No wheezing. No rhonchi. CVS: S1, S2 present. Regular. ABDOMEN: Soft. Bowel sounds present. Epigastric tenderness noted. No guarding. No rigidity. No rebound tenderness noted. [employer]: Alert, awake, oriented x3. No focal deficits noted. EXTREMITIES: No edema. Palpable peripheral pulses. MEDICATIONS: Maalox as needed, Ventolin, Eliquis 5 mg p.o. b.i.d., Colace 100 mg p.o. b.i.d., Pepcid 20 mg IV daily, Linzess, hydrochlorothiazide 25 mg p.o. daily, Synthroid 135 mcg p.o. daily, Zofran as needed, Protonix 40 mg IV push daily, MiraLax 17 gm p.o. b.i.d., Crestor 2.5 mg p.o. at bedtime. LABORATORY DATA: Labs done from this morning; WBC 11.2, hemoglobin 13.5, hematocrit 40.3, platelets 300. Sodium 140, potassium 4.1, chloride 105, bicarb 26, BUN 19, creatinine 0.7, glucose 100, calcium 9, phosphorus 3.7, magnesium 1.9, total bilirubin 0.5, AST 27, ALT 38, alkaline phosphatase 71, cardiac enzymes x3 negative, total protein 5.9, albumin 3.3. Blood culture x2 negative so far. Urine culture negative. Echocardiogram done this afternoon consistent with a trace loculated anterior pericardial effusion, normal ejection fraction, vdlhiiuz-[id number] valvular aortic stenosis. 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 Three sets of cardiac enzymes were negative. No EKG changes. Echo consistent with cyasstze-re-mpnqfa aortic stenosis and trace loculated pleural effusion. GI consult appreciated. The patient was underwent the impression that she was going to undergo endoscopy this morning as she was told by the GI team. Later, GI team decided not to proceed with EGD as the patient in on Eliquis, which was not conveyed to the patient and the patient was upset that she was not informed about the changes made to the plan. Discussed with the patient at length. We will advance diet as tolerated. We will continue with Protonix. We will obtain Cardiology evaluation. GI recommending EGD as outpatient. The patient also underwent EGD and colonoscopy as outpatient. I advised the patient to follow up with her own head of insight for further management of her symptoms. We will continue with other current therapy. uYlissa Sun MD
--- NOTE | 2018-07-03 06:22 | CP.PCM.CON ---
History of Present Illness - History of Present Illness History of Present Illness: Moderate to severe ? Bicuspid valve Likely needs EKTA Past Patient History - Past Social History Smoking Status: Never Smoked - CARDIAC Hx Hypertension: Yes - ENDOCRINE/METABOLIC Other/Comment: thyroid disease - PSYCHIATRIC Hx Substance Use: No Meds Allergies/Adverse Reactions: Allergies Allergy/AdvReac Type Severity Reaction Status Date / Time morphine Allergy Verified 06/30/18 22:34 - Medications Medications: Current Medications Al Hydrox/Mg Hydrox/Simethicone (Maalox Plus 30 Ml) 30 ml PO Q8H PRN PRN Reason: Indigestion / Heartburn Albuterol (Ventolin Hfa 90 Mcg/Actuation (8 G)) 1 puff IH RQ24 PRN PRN Reason: Shortness of Breath Apixaban (Eliquis) 5 mg PO BID [facility] Last Admin: 07/02/18 17:43 Dose: 5 mg Docusate Sodium (Colace) 100 mg PO BID [facility] Last Admin: 07/02/18 21:53 Dose: Not Given Famotidine (Pepcid) 20 mg IVP DAILY [facility] Last Admin: 07/02/18 10:01 Dose: 20 mg Home Med (Linaclotide [Linzess]) 290 mcg PO DAILY [facility] Hydrochlorothiazide (Hydrodiuril) 25 mg PO DAILY [facility] Last Admin: 07/02/18 09:58 Dose: 25 mg Levothyroxine Sodium (Levothroid) 137 mcg PO DAILY@0630 [facility] Last Admin: 07/03/18 05:30 Dose: 137 mcg Ondansetron HCl (Zofran Inj) 4 mg IVP Q8 PRN PRN Reason: Nausea/Vomiting Pantoprazole Sodium (Protonix Inj) 40 mg IVP DAILY [facility] Last Admin: 07/02/18 09:58 Dose: 40 mg Polyethylene Glycol (Miralax) 17 gm PO BID [facility] Last Admin: 07/02/18 17:45 Dose: Not Given Rosuvastatin Calcium (Crestor) 2.5 mg PO HS [facility] Last Admin: 07/02/18 21:52 Dose: 2.5 mg Results - Vital Signs Recent Vital Signs: Last Vital Signs Temp 98.8 F 07/02/18 23:46 Pulse 63 07/02/18 23:46 Resp 20 07/02/18 23:46 BP 111/70 07/02/18 23:46 Pulse Ox 97 07/02/18 23:46 - Labs Result Diagrams: 07/02/18 08:14 07/02/18 08:14 Labs: Laboratory Results - last 24 hr 07/01/18 07/02/18 07/02/18 08:43 08:14 08:14 WBC 11.2 H RBC 4.52 Hgb 13.5 Hct 40.3 MCV 89.0 MCH 29.8 MCHC 33.5 RDW 14.2 Plt Count 300 MPV 9.0 Neut % (Auto) 58.2 Lymph % (Auto) 29.4 [place] % (Auto) 8.8 Eos % (Auto) 2.4 Baso % (Auto) 1.2 Neut # (Auto) 6.5 Lymph # (Auto) 3.3 [place] # (Auto) 1.0 H Eos # (Auto) 0.3 Baso # (Auto) 0.1 Sodium 140 Potassium 4.1 Chloride 105 Carbon Dioxide 26 Anion Gap 13 BUN 19 H Creatinine 0.7 Est GFR ( Amer) > 60 Est GFR (Non-Af Amer) > 60 Random Glucose 100 Hemoglobin A1c 6.1 Calcium 9.0 Phosphorus 3.7 Magnesium 1.9 Total Bilirubin 0.5 AST 27 ALT 38 Alkaline Phosphatase 71 Troponin I Total Protein 5.9 L Albumin 3.3 L Globulin 2.6 Albumin/Globulin Ratio 1.2 07/02/18 13:45 WBC RBC Hgb Hct MCV MCH MCHC RDW Plt Count MPV Neut % (Auto) Lymph % (Auto) [place] % (Auto) Eos % (Auto) Baso % (Auto) Neut # (Auto) Lymph # (Auto) [place] # (Auto) Eos # (Auto) Baso # (Auto) Sodium Potassium Chloride Carbon Dioxide Anion Gap BUN Creatinine Est GFR ( Amer) Est GFR (Non-Af Amer) Random Glucose Hemoglobin A1c Calcium Phosphorus Magnesium Total Bilirubin AST ALT Alkaline Phosphatase Troponin I < 0.0120 Total Protein Albumin Globulin Albumin/Globulin Ratio
[2018-07-03] MEDS: POLYETHYLENE GLYCOL 3350 17 GM/Dose PACKET PO SCH ×2 (08:59→21:42)
--- NOTE | 2018-07-03 10:54 | CP.PCM.PN ---
Subjective - Date & Time of Evaluation Date of Evaluation: 07/03/18 Time of Evaluation: 10:53 - Subjective Subjective: Progress note dictated # [id number] Objective - Vital Signs/Intake and Output Vital Signs (last 24 hours): Temp Pulse Resp BP Pulse Ox 98.3 F 61 20 108/64 97 07/03/18 08:00 07/03/18 08:00 07/03/18 08:00 07/03/18 08:00 07/03/18 08:00 - Medications Medications: Current Medications Al Hydrox/Mg Hydrox/Simethicone (Maalox Plus 30 Ml) 30 ml PO Q8H PRN PRN Reason: Indigestion / Heartburn Albuterol (Ventolin Hfa 90 Mcg/Actuation (8 G)) 1 puff IH RQ24 PRN PRN Reason: Shortness of Breath Apixaban (Eliquis) 5 mg PO BID [facility] Last Admin: 07/03/18 08:59 Dose: 5 mg Docusate Sodium (Colace) 100 mg PO BID [facility] Last Admin: 07/03/18 08:59 Dose: 100 mg Famotidine (Pepcid) 20 mg IVP DAILY [facility] Last Admin: 07/03/18 08:59 Dose: 20 mg Home Med (Linaclotide [Linzess]) 290 mcg PO DAILY [facility] Hydrochlorothiazide (Hydrodiuril) 25 mg PO DAILY [facility] Last Admin: 07/03/18 08:59 Dose: 25 mg Levothyroxine Sodium (Levothroid) 137 mcg PO DAILY@0630 [facility] Last Admin: 07/03/18 05:30 Dose: 137 mcg Ondansetron HCl (Zofran Inj) 4 mg IVP Q8 PRN PRN Reason: Nausea/Vomiting Pantoprazole Sodium (Protonix Inj) 40 mg IVP DAILY [facility] Last Admin: 07/03/18 08:59 Dose: 40 mg Polyethylene Glycol (Miralax) 17 gm PO BID [facility] Last Admin: 07/03/18 08:59 Dose: Not Given Rosuvastatin Calcium (Crestor) 2.5 mg PO [facility] Last Admin: 07/02/18 21:52 Dose: 2.5 mg - Labs Labs: 07/02/18 08:14 07/02/18 08:14 PT 11.5 SECONDS (9.7-12.2) 06/30/18 23:19 INR 1.1 10/06/18 23:19
[2018-07-03 16:11] VITALS: TEMP 98.2
[2018-07-03] MEDS: Rosuvastatin Calcium 2.5 mg Tab PO SCH (21:39)
--- NOTE | 2018-07-03 22:00 | CP.PCM.PN ---
Subjective - Date & Time of Evaluation Date of Evaluation: 07/03/18 Time of Evaluation: 16:20 - Subjective Subjective: Patient seen and evaluated No cardiac symptoms Moderate to severe Out patient f/u with me in 1-2 months EKTA as out patient Objective - Vital Signs/Intake and Output Vital Signs (last 24 hours): Temp Pulse Resp BP Pulse Ox 98.2 F 76 20 123/72 96 07/03/18 16:10 07/03/18 16:10 07/03/18 16:10 07/03/18 16:10 07/03/18 16:10 Intake and Output: 07/03/18 07/04/18 18:59 06:59 Intake Total 365 Balance 365 - Medications Medications: Current Medications Al Hydrox/Mg Hydrox/Simethicone (Maalox Plus 30 Ml) 30 ml PO Q8H PRN PRN Reason: Indigestion / Heartburn Albuterol (Ventolin Hfa 90 Mcg/Actuation (8 G)) 1 puff IH RQ24 PRN PRN Reason: Shortness of Breath Apixaban (Eliquis) 5 mg PO BID [facility] Last Admin: 07/03/18 17:33 Dose: 5 mg Docusate Sodium (Colace) 100 mg PO BID [facility] Last Admin: 07/03/18 17:33 Dose: 100 mg Home Med (Linaclotide [Linzess]) 290 mcg PO DAILY [facility] Hydrochlorothiazide (Hydrodiuril) 25 mg PO DAILY [facility] Last Admin: 07/03/18 08:59 Dose: 25 mg Levothyroxine Sodium (Levothroid) 137 mcg PO DAILY@0630 [facility] Last Admin: 07/03/18 05:30 Dose: 137 mcg Ondansetron HCl (Zofran Inj) 4 mg IVP Q8 PRN PRN Reason: Nausea/Vomiting Pantoprazole Sodium (Protonix Inj) 40 mg IVP DAILY [facility] Last Admin: 07/03/18 08:59 Dose: 40 mg Polyethylene Glycol (Miralax) 17 gm PO BID [facility] Last Admin: 07/03/18 21:42 Dose: 17 gm Rosuvastatin Calcium (Crestor) 2.5 mg PO HS [facility] Last Admin: 07/03/18 21:39 Dose: 2.5 mg - Labs Labs: 07/02/18 08:14 07/02/18 08:14 PT 11.5 SECONDS (9.7-12.2) 06/30/18 23:19 INR 1.1 06/30/18 23:19
--- NOTE | 2018-07-04 00:31 | PN ---
DATE: 07/03/2018 SUBJECTIVE: The patient was seen and examined at bedside. The patient is complaining of epigastric abdominal pain, better than yesterday but still present. Denies any nausea or vomiting. Denies any headache. Denies any chest pain. All other systems reviewed and were found to be negative. PHYSICAL EXAMINATION: GENERAL: Elderly female, lying in bed, in no acute distress. VITAL SIGNS: Blood pressure 123/72, pulse 76, respirations 20, temperature 98.2 degrees Fahrenheit, and O2 sat is 96% on room air. HEENT: Pupils equal, round, and reacting to light and accommodation. Extraocular muscles intact. No icterus. No pallor. No oral thrush. No pharyngeal congestion. NECK: Supple. No JVD. LUNGS: Bilateral vesicular breath sounds. No wheezing. No rhonchi. CARDIOVASCULAR SYSTEM: S1 and S2 present, regular. ABDOMEN: Soft. Epigastric tenderness present. No guarding. No rigidity. No rebound tenderness noted. CENTRAL NERVOUS SYSTEM: Alert, awake, and oriented x3. No focal deficits noted. EXTREMITIES: No edema. Palpable peripheral pulses. MEDICATIONS: Include Maalox as needed, Ventolin, Eliquis 5 mg p.o. b.i.d., Colace 100 mg p.o. b.i.d., Pepcid 20 mg IV push daily, hydrochlorothiazide 25 mg daily, Synthroid 137 mcg daily, Zofran 4 mg IV push every 8 hours p.r.n., Protonix 40 mg IV daily, MiraLAX 17 g p.o. b.i.d., Crestor 2.5 mg p.o. at bedtime. LABORATORY DATA: Blood cultures not available for today. Urine culture negative. Blood cultures negative so far. ASSESSMENT AND PLAN: Elderly female with history of hypertension, hypothyroidism, hyperlipidemia, obstructive sleep apnea, portal vein thrombosis, on long-term anticoagulation. Admitted for abdominal pain, most likely secondary to acute gastritis and abnormal echocardiogram consistent with [id number] aortic stenosis and trace pericardial effusion. Follow up with Cardiology regarding treatment plan. Continue with Protonix and Maalox as needed. Continue with Eliquis. Continue with other medications. If cleared by Cardiology, we will plan discharging the patient home. Yulissa Sun MD [facility] # [id number]
[2018-07-04 09:49] VITALS: BP 123/77; PULSE 56; O2SAT 99
[2018-07-04] MEDS: POLYETHYLENE GLYCOL 3350 17 GM/Dose PACKET PO SCH (09:53)
--- NOTE | 2018-07-04 10:28 | CP.PCM.PN ---
Subjective - Date & Time of Evaluation Date of Evaluation: 07/04/18 Time of Evaluation: 10:25 - Subjective Subjective: Discharge summary dictated #[id number] Objective - Vital Signs/Intake and Output Vital Signs (last 24 hours): Temp Pulse Resp BP Pulse Ox 98.2 F 56 L 20 123/77 99 07/04/18 00:06 07/04/18 09:48 07/04/18 09:48 07/04/18 09:48 07/04/18 09:48 Intake and Output: 07/04/18 07/04/18 06:59 18:59 Intake Total 640 Balance 640 - Medications Medications: Current Medications Al Hydrox/Mg Hydrox/Simethicone (Maalox Plus 30 Ml) 30 ml PO Q8H PRN PRN Reason: Indigestion / Heartburn Albuterol (Ventolin Hfa 90 Mcg/Actuation (8 G)) 1 puff IH RQ24 PRN PRN Reason: Shortness of Breath Apixaban (Eliquis) 5 mg PO BID [facility] Last Admin: 07/04/18 09:42 Dose: 5 mg Docusate Sodium (Colace) 100 mg PO BID [facility] Last Admin: 07/04/18 09:42 Dose: 100 mg Home Med (Linaclotide [Linzess]) 290 mcg PO DAILY [facility] Hydrochlorothiazide (Hydrodiuril) 25 mg PO DAILY [facility] Last Admin: 07/04/18 09:42 Dose: 25 mg Levothyroxine Sodium (Levothroid) 137 mcg PO DAILY@0630 [facility] Last Admin: 07/04/18 06:02 Dose: 137 mcg Ondansetron HCl (Zofran Inj) 4 mg IVP Q8 PRN PRN Reason: Nausea/Vomiting Pantoprazole Sodium (Protonix Inj) 40 mg IVP DAILY [facility] Last Admin: 07/04/18 09:42 Dose: 40 mg Polyethylene Glycol (Miralax) 17 gm PO BID [facility] Last Admin: 07/04/18 09:53 Dose: Not Given Rosuvastatin Calcium (Crestor) 2.5 mg PO HS [facility] Last Admin: 07/03/18 21:39 Dose: 2.5 mg - Labs Labs: 07/02/18 08:14 07/02/18 08:14 PT 11.5 SECONDS (9.7-12.2) 06/30/18 23:19 INR 1.1 06/30/18 23:19
--- NOTE | 2018-07-05 09:11 | DS ---
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 HISTORY OF PRESENT ILLNESS: Ms. Neisha Mccoy is a 67-year-old female with past medical history of hypertension, hypothyroidism, hyperlipidemia, obstructive sleep apnea, on CPAP. SHE HAS NO ALLERGIES, history of portal vein thrombosis, on long-term anticoagulation, admitted to the hospital with sudden onset of epigastric pain radiating to the left upper quadrant associated with mild shortness of breath. In the ED, the patient had CT of the abdomen and pelvis which was negative, and the patient had persistent abdominal pain, elevated WBC count, so the patient was admitted to the hospital. This morning, the patient is feeling much better. Denies any headache, dizziness. Denies any chest pain, shortness of breath, or wheezing. Denies any nausea, vomiting, but the abdominal pain is much better. Denies any diarrhea, constipation. Denies any urinary complaints. Denies any leg pains or leg cramps. All other systems reviewed and were found to be negative. PHYSICAL EXAMINATION: GENERAL: Elderly female, lying in bed, in no acute distress. VITAL SIGNS: Blood pressure 123/77, pulse 56, respirations 20, temperature 98.3 degrees Fahrenheit, O2 saturation is 99% on room air. HEENT: Pupils equal, round, and reacting to light and accommodation. Extraocular muscles intact. No icterus. No pallor. No oral thrush. No pharyngeal congestion. NECK: Supple. No JVD. LUNGS: Bilateral vesicular breath sounds. No wheezing. No rhonchi. CARDIOVASCULAR SYSTEM: S1 and S2 present and regular. ABDOMEN: Soft. Bowel sounds present. Mild epigastric tenderness noted. No guarding. No rigidity. No rebound tenderness noted. CENTRAL NERVOUS SYSTEM: Alert, awake, oriented x3. No focal deficits noted. EXTREMITIES: No edema. Palpable peripheral pulses. LABORATORY DATA: Labs from 07/02/2018, WBC 11.2, hemoglobin 13.5, hematocrit 40.3, platelets 300,000. Sodium 140, potassium 4.1, chloride 105, bicarb 26, BUN 19, creatinine 0.7, glucose 100. Calcium 9, phosphorus 3.7, magnesium 1.9, bilirubin 0.5, AST 27, ALT 38, alkaline phosphatase 71. Cardiac enzymes x3 negative. Cholesterol 169, LDL 77, HDL 69, TSH 0.55. HOSPITAL COURSE: The patient was admitted to the hospital. The patient was kept n.p.o., started on IV fluids. The patient was given Protonix and Maalox for epigastric pain. She was evaluated by GI as the patient is on long-term anticoagulation, on Eliquis. GI wanted to do EGD as outpatient. The patient claimed that she already have a curtain cleaner from outside. She underwent EGD and colonoscopy in the past, and she also has scheduled appointment with the curtain cleaner on 07/17/2018. The patient was advised to follow up with GI as outpatient. The patient underwent cardiac workup. Her troponins were negative. No EKG changes, but her echocardiogram showed [id number] aortic stenosis with trace loculated pericardial effusion for which the patient was evaluated by Cardiology. Cardiology recommended further workup for aortic stenosis as outpatient. The patient's symptoms improved. The patient's diet was advanced and tolerating regular heart healthy diet. As the patient is otherwise stable and cleared by GI and Cardiology, the patient was discharged home. Advised the patient to come to the emergency room or call me if any worsening or recurrent or new symptoms occur. CONDITION UPON DISCHARGE: The patient is alert, awake, oriented x3, and hemodynamically stable. DISCHARGE INSTRUCTIONS: Follow up with PMD. Follow up with Cardiology in one to two months. Follow up with GI as scheduled on 07/17/2018. DISCHARGE DIET: Heart healthy, low sodium, low cholesterol, bland diet. ACTIVITY: As tolerated. DISCHARGE MEDICATIONS: Maalox 30 mL p.o. every 8 hours as needed, Zocor 10 mg daily, omeprazole 40 mg daily, Linzess 290 mcg capsule daily, Synthroid 137 mcg daily, Microzide 25 mg p.o. daily, vitamin D 5000 units daily, Eliquis 5 mg p.o. 2 times daily, Ventolin one puff as needed. Yulissa Sun MD
== END 2018-07-04 14:20 | disposition home or self-care (01) | DRG 391 ==
LOC: C.ER 22:14 → C.9E 07-01 01:08 → C.3T 07-01 01:28 → OBSVTOIN 07-03 11:02 → C.3T 07-03 13:04
PROVIDERS: ADMIT Internal Medicine; ATTEND Internal Medicine
DX: K29.00 Acute gastritis without bleeding (principal); E87.6 Hypokalemia; I35.0 Nonrheumatic aortic (valve) stenosis; I81 Portal vein thrombosis; I10 Essential (primary) hypertension; J44.9 Chronic obstructive pulmonary disease, unspecified; K20.9 Esophagitis, unspecified; K59.09 Other constipation; E03.9 Hypothyroidism, unspecified; K63.5 Polyp of colon; R13.10 Dysphagia, unspecified; E78.5 Hyperlipidemia, unspecified; G47.33 Obstructive sleep apnea (adult) (pediatric); J30.2 Other seasonal allergic rhinitis; T38.0X5A Adverse effect of glucocorticoids and synthetic analogues, initial encounter; Z86.718 Personal history of other venous thrombosis and embolism; Z79.01 Long term (current) use of anticoagulants; Z90.49 Acquired absence of other specified parts of digestive tract; Z90.710 Acquired absence of both cervix and uterus; Z90.81 Acquired absence of spleen; Z80.0 Family history of malignant neoplasm of digestive organs; Z82.49 Family history of ischemic heart disease and other diseases of the circulatory system